=== PATIENT | female | born 1935 | race Caucasian/White ===

== ENCOUNTER 2016-08-10 05:42 | Inpatient (IN) | payer MEDICARE, BC ==
--- NOTE | ~2016-08-10 | TEE ---
Transesophageal Echocardiogram [facility] [address] [place]. [address] NAME: MIKA HORTA : 37 STATUS : ADM Rhina PAT#: [id number] AGE: 80 ADM/REG DATE : 08/10/16 MR#: [id number] REPORT SERV DATE: 08/11/16 DICTATED BY: YEVGENIY BOOKER DATE: 08/11/16 REPORT STATUS : Draft TRANSCRIBED BY: MODL DATE: 08/11/16 INDICATION: Questionable left atrial thrombus versus hematoma. PROCEDURE DESCRIPTION: After informed consent, the patient was sedated with propofol by the Anesthesia Department. The transesophageal probe was placed on the first attempt. After removal of the transesophageal probe, there were no immediate complications. FINDINGS: 2D: 1. The aortic valve is trileaflet and opens adequately. 2. There is no evidence of left atrial appendage thrombus. 3. The ascending aorta is normal in size. 4. Left ventricular size and systolic function appear normal. 5. The mitral valve is structurally normal. 6. Left atrial size is normal. 7. The right-sided chambers are normal in size. 8. The tricuspid valve is structurally normal. 9. There is a trace circumferential pericardial effusion with no signs of tamponade. 10.There is a hematoma involving the posterior portion of the interatrial septum and the posterior wall of the left atrium measuring approximately 2.5 cm in diameter. There are no mobile components. This does not appear to be an actual intravascular thrombus. DOPPLER: Pulse wave Doppler in the left atrial appendage is less than 40 cm/second. COLOR FLOW: 1. There is mild aortic, mitral, and tricuspid regurgitation. 2. There is an iatrogenic ASD noted, relatively small. IMPRESSION: There is an apparent left atrial wall hematoma involving the posterior portion of the interatrial septum and posterior left atrial wall. WW/JADEN Yevgeniy Booker M.D. / [id number] CC: Nadine Farley M.D.
--- NOTE | ~2016-08-10 | DS ---
Discharge Summary [facility] [address] [place]. [address] NAME: MIKA HORTA : 37 STATUS : DIS IN PAT#: [id number] AGE: 80 ADM/REG DATE : 08/12/16 MR#: [id number] REPORT SERV DATE: 08/25/16 DICTATED BY: ALICE RAY DATE: 08/25/16 REPORT STATUS : Draft TRANSCRIBED BY: MODJasbir DATE: 08/25/16 Data Collection from hospitalization DISCHARGE DIAGNOSES: 1. Supraventricular tachycardia. 2. Hypertension. 3. Lymphoma. 4. Gastroesophageal reflux disease. 5. Bronchitis. 6. Chemotherapy-induced peripheral neuropathy. CONSULTATIONS: None. PROCEDURES PERFORMED: Ablation/pacemaker placement on 08/10/2016. MEDICATIONS: Aspirin 162.5 mg daily, Neurontin 200 mg twice a day, multivitamins one tablet daily, fish oil 1000 mg daily, Xarelto 20 mg with supper, and Ultram 50 mg every six hours as needed. CONDITION AT DISCHARGE: Stable. DISPOSITION: The patient was discharged home on a low-sodium, low-cholesterol, cardiac diet with activities as instructed. She would follow up with me on 09/08/2016 and with her primary care provider as needed. HOSPITAL COURSE: This is a 80-year-old female who has a history of supraventricular tachycardia. She said that on the Cardizem she continued to have breakthrough episodes of tachycardia and palpitations. It was felt that she would need to undergo an ablation procedure and pacemaker placement. She was admitted to the hospital for further evaluation and treatment. Upon admission, the patient was taken to the operating room where she underwent the above- mentioned procedure. She tolerated this well, and there were no complications. The following day, postop pacemaker check was within normal limits. Dopamine was being weaned. Transesophageal echocardiogram had been performed, it was reviewed. IV fluids were continued. On 08/12/2016, the patient became a full admit. She had some weakness and dizziness. She had no chest pain or shortness of breath. She had normal device function. She was in an atrial paced rhythm. Eliquis was started. The next day, she was feeling better. She was still fatigued. She was in a normal sinus rhythm/atrial paced rhythm. She does have a chest wall hematoma. Xarelto was continued. She was wanting to go home. She was in a normal sinus rhythm. On 08/14/2016, she did have some lower extremity swelling. She continued to do well. She was evaluated by Physical Therapy. Discharge planning was performed. Bumex was continued. On 08/16/2016, she remained comfortable. She had no edema. Discharge instructions were given. Due to her improved and stable condition, she was discharged home with the above- stated instructions. [facility] [place] [id number] [facility] [place] [address] NAME: MIKA HORTA : 37 STATUS : DIS IN PAT#: [id number] AGE: 80 ADM/REG DATE : 08/12/16 MR#: [id number] REPORT SERV DATE: 08/25/16 DICTATED BY: ALICE RAY DATE: 08/25/16 REPORT STATUS : Draft TRANSCRIBED BY: JADEN DATE: 08/25/16 Information collected by: Aundrea Chahal I submit the above information as my discharge summary. TG/JADEN Alice Ray M.D. / [id number] CC: Nadine Farley M.D.
[~2016-08-10 05:42] MED LIST: ASA5GR PO; CARDCD120 PO; FISH-EPA1000 MG PO; MULTIPLE VIT PO; NEUR100 PO; ULTRAM50 PO
[2016-08-10 06:29] LABS: BASOPHILS 0.7 %; BASOPHILS ABSOLUTE 0.05 10/3/uL (0.0-0.16); EOSINOPHILS 4.4 %; EOSINOPHILS ABSOLUTE 0.33 10/3/uL (0.0-0.53); HEMOGLOBIN 11.9 g/dL (12.0-16.0); IMMATURE GRANULOCYTES 0.7 %; IMMATURE GRANULOCYTES ABSOLUTE 0.05 10/3/uL (0.0-0.11); LYMPHOCYTES 13.8 %; LYMPHOCYTES ABSOLUTE 1.04 10/3/uL (0.67-4.30); MEAN CORPUS HGB CONC 35.2 g/dL (32.0-36.0); MEAN CORPUSCULAR HEMOGLOB 33.9 pg (26.0-34.0); MONOCYTES 9.2 %; MONOCYTES ABSOLUTE 0.69 10/3/uL (0.21-1.20); NEUTROPHILS 71.2 %; NEUTROPHILS ABSOLUTE 5.35 10/3/uL (2.02-8.40); PLATELET COUNT 252 10/3/uL (150-400); WHITE BLOOD CELLS 7.5 10/3/uL (4.5-10.5)
[2016-08-10 06:38] LABS: HEMATOCRIT 33.8 % (36.0-48.0); MANUAL DIFF NO %; MEAN CORPUSCULAR VOLUME 96.3 fL (80-100); RED CELL COUNT 3.51 10/6/uL (4.0-5.6)
[2016-08-10 06:40] LABS: BUN (BLOOD UREA NITROGEN) 11 MG/DL (6-23); CALCIUM, SERUM 9.4 MG/DL (8.5-10.4); CHLORIDE, SERUM 108 MMOL/L (96-112); CO2 (CARBON DIOXIDE) 30 MMOL/L (24-34); CREATININE 0.73 MG/DL (0.55-1.02); GFR AFRICAN AMERICAN 91 ML/MIN (>=60); GFR NON AFRICAN AMERICAN 78 ML/MIN (>=60); GLUCOSE, SERUM 105 MG/DL (60-99); POTASSIUM, SERUM 3.8 MMOL/L (3.5-5.3); SODIUM, SERUM 145 MMOL/L (135-148)
[2016-08-11 08:13] LABS: BASOPHILS 0.1 %; BASOPHILS ABSOLUTE 0.02 10/3/uL (0.0-0.16); EOSINOPHILS 0 %; HEMOGLOBIN 11.1 g/dL (12.0-16.0); IMMATURE GRANULOCYTES 0.4 %; IMMATURE GRANULOCYTES ABSOLUTE 0.07 10/3/uL (0.0-0.11); LYMPHOCYTES ABSOLUTE 0.53 10/3/uL (0.67-4.30); MEAN CORPUS HGB CONC 34.7 g/dL (32.0-36.0); MEAN CORPUSCULAR HEMOGLOB 33.9 pg (26.0-34.0); MEAN CORPUSCULAR VOLUME 97.9 fL (80-100); MEAN PLATELET VOLUME 11.3 fL (9.2-13.0); MONOCYTES 8.5 %; NEUTROPHILS ABSOLUTE 15.55 10/3/uL (2.02-8.40); PLATELET COUNT 249 10/3/uL (150-400); RBC DISTRIBUTION WIDTH 16.3 % (12.0-16.0); RED CELL COUNT 3.27 10/6/uL (4.0-5.6); WHITE BLOOD CELLS 17.7 10/3/uL (4.5-10.5)
[2016-08-11 08:14] LABS: MANUAL DIFF NO %
[2016-08-11 08:57] LABS: CHLORIDE, SERUM 111 MMOL/L (96-112); CREATININE 0.87 MG/DL (0.55-1.02); GFR AFRICAN AMERICAN 73 ML/MIN (>=60); GFR NON AFRICAN AMERICAN 63 ML/MIN (>=60); POTASSIUM, SERUM 4.1 MMOL/L (3.5-5.3); SODIUM, SERUM 144 MMOL/L (135-148)
[2016-08-11 08:58] LABS: BUN (BLOOD UREA NITROGEN) 15 MG/DL (6-23); CALCIUM, SERUM 8.1 MG/DL (8.5-10.4); CO2 (CARBON DIOXIDE) 23 MMOL/L (24-34); GLUCOSE, SERUM 151 MG/DL (60-99)
[2016-08-11 12:13] LABS: ASCORBIC ACID (UR NOT ORDER) NEG (NEG); BILIRUBIN, URINE NEGATIVE (NEG); KETONE, URINE NEGATIVE (NEG); LEUKOCYTE ESTERASE(NOT OR NEG (NEG); WBC (NOT ORDERED) (RFLEX) 1 (0-5)
[2016-08-12 05:35] LABS: BUN (BLOOD UREA NITROGEN) 27 MG/DL (6-23); CALCIUM, SERUM 8.2 MG/DL (8.5-10.4); CHLORIDE, SERUM 110 MMOL/L (96-112); CO2 (CARBON DIOXIDE) 26 MMOL/L (24-34); CREATININE 0.87 MG/DL (0.55-1.02); GFR AFRICAN AMERICAN 73 ML/MIN (>=60); GFR NON AFRICAN AMERICAN 63 ML/MIN (>=60); GLUCOSE, SERUM 116 MG/DL (60-99); SODIUM, SERUM 142 MMOL/L (135-148)
[2016-08-12 05:50] LABS: BASOPHILS 0.2 %; BASOPHILS ABSOLUTE 0.02 10/3/uL (0.0-0.16); EOSINOPHILS 0.2 %; EOSINOPHILS ABSOLUTE 0.03 10/3/uL (0.0-0.53); HEMATOCRIT 30.5 % (36.0-48.0); HEMOGLOBIN 10.3 g/dL (12.0-16.0); IMMATURE GRANULOCYTES 0.4 %; IMMATURE GRANULOCYTES ABSOLUTE 0.05 10/3/uL (0.0-0.11); LYMPHOCYTES 8.9 %; LYMPHOCYTES ABSOLUTE 1.13 10/3/uL (0.67-4.30); MEAN CORPUS HGB CONC 33.8 g/dL (32.0-36.0); MEAN CORPUSCULAR HEMOGLOB 34.1 pg (26.0-34.0); MEAN PLATELET VOLUME 11.2 fL (9.2-13.0); MONOCYTES 8.9 %; MONOCYTES ABSOLUTE 1.12 10/3/uL (0.21-1.20); NEUTROPHILS 81.4 %; NEUTROPHILS ABSOLUTE 10.29 10/3/uL (2.02-8.40); PLATELET COUNT 176 10/3/uL (150-400); RBC DISTRIBUTION WIDTH 16.8 % (12.0-16.0); RED CELL COUNT 3.02 10/6/uL (4.0-5.6); WHITE BLOOD CELLS 12.6 10/3/uL (4.5-10.5)
[2016-08-12 05:51] LABS: MANUAL DIFF NO %
[2016-08-14 05:54] LABS: CALCIUM, SERUM 8.6 MG/DL (8.5-10.4); CHLORIDE, SERUM 105 MMOL/L (96-112); CREATININE 0.74 MG/DL (0.55-1.02); GFR AFRICAN AMERICAN 89 ML/MIN (>=60); GFR NON AFRICAN AMERICAN 77 ML/MIN (>=60); GLUCOSE, SERUM 104 MG/DL (60-99); HEMATOCRIT 29.3 % (36.0-48.0); HEMOGLOBIN 9.9 g/dL (12.0-16.0); MEAN CORPUS HGB CONC 33.8 g/dL (32.0-36.0); MEAN CORPUSCULAR HEMOGLOB 33.8 pg (26.0-34.0); MEAN PLATELET VOLUME 12.1 fL (9.2-13.0); NUCLEATED RED BLOOD CELLS 0.6 /100WBC (0-0); PLATELET COUNT 187 10/3/uL (150-400); POTASSIUM, SERUM 3.7 MMOL/L (3.5-5.3); RBC DISTRIBUTION WIDTH 16.3 % (12.0-16.0); RED CELL COUNT 2.93 10/6/uL (4.0-5.6); SODIUM, SERUM 141 MMOL/L (135-148); WHITE BLOOD CELLS 9.1 10/3/uL (4.5-10.5)
[2016-08-14 05:55] LABS: BUN (BLOOD UREA NITROGEN) 17 MG/DL (6-23); CO2 (CARBON DIOXIDE) 31 MMOL/L (24-34)
[2016-08-14 06:00] LABS: MANUAL DIFF YES %
[2016-08-14 06:05] LABS: BAND NEUTROPHILS 13 %; EOSINOPHILS 4 %; EOSINOPHILS ABSOLUTE (CALC) 0.36 10/3/uL (0.0-0.53); LYMPHOCYTES 13 %; LYMPHOCYTES ABSOLUTE (CALC) 1.18 10/3/uL (0.67-4.30); MONOCYTES 6 %; MONOCYTES ABSOLUTE (CALC) 0.55 10/3/uL (0.21-1.20); NEUTROPHILS ABSOLUTE (CALC) 7.01 10/3/uL (2.02-8.40); PLATELET ESTIMATE ADQ (ADEQUATE); SEGMENTED NEUTROPHIL (0) 64 %; TOTAL NUCLEATED CELLS 100
[2016-08-14 06:06] LABS: MACROCYTES 1+ (5-10/OIF) (0-5/OIF); RBC MORPHOLOGY ABN (NORMAL)
[2016-08-15 06:48] LABS: BUN (BLOOD UREA NITROGEN) 14 MG/DL (6-23); CALCIUM, SERUM 8.8 MG/DL (8.5-10.4); CHLORIDE, SERUM 104 MMOL/L (96-112); CO2 (CARBON DIOXIDE) 32 MMOL/L (24-34); CREATININE 0.67 MG/DL (0.55-1.02); GFR AFRICAN AMERICAN 97 ML/MIN (>=60); GFR NON AFRICAN AMERICAN 84 ML/MIN (>=60); GLUCOSE, SERUM 99 MG/DL (60-99); POTASSIUM, SERUM 3.6 MMOL/L (3.5-5.3); SODIUM, SERUM 141 MMOL/L (135-148)
[2016-08-15 07:33] LABS: BASOPHILS 0.6 %; BASOPHILS ABSOLUTE 0.05 10/3/uL (0.0-0.16); EOSINOPHILS 4.6 %; EOSINOPHILS ABSOLUTE 0.41 10/3/uL (0.0-0.53); HEMATOCRIT 30.1 % (36.0-48.0); HEMOGLOBIN 10.2 g/dL (12.0-16.0); IMMATURE GRANULOCYTES 1.4 %; IMMATURE GRANULOCYTES ABSOLUTE 0.12 10/3/uL (0.0-0.11); LYMPHOCYTES 14.2 %; LYMPHOCYTES ABSOLUTE 1.25 10/3/uL (0.67-4.30); MEAN CORPUS HGB CONC 33.9 g/dL (32.0-36.0); MEAN CORPUSCULAR VOLUME 100.3 fL (80-100); MEAN PLATELET VOLUME 11.5 fL (9.2-13.0); MONOCYTES 9.2 %; MONOCYTES ABSOLUTE 0.81 10/3/uL (0.21-1.20); NEUTROPHILS ABSOLUTE 6.19 10/3/uL (2.02-8.40); NUCLEATED RED BLOOD CELLS 0.6 /100WBC (0-0); PLATELET COUNT 224 10/3/uL (150-400); RBC DISTRIBUTION WIDTH 16.3 % (12.0-16.0); WHITE BLOOD CELLS 8.8 10/3/uL (4.5-10.5)
[2016-08-15 07:36] LABS: MANUAL DIFF NO %
[2016-08-16 06:46] LABS: BUN (BLOOD UREA NITROGEN) 15 MG/DL (6-23); CALCIUM, SERUM 9.3 MG/DL (8.5-10.4); CHLORIDE, SERUM 103 MMOL/L (96-112); CO2 (CARBON DIOXIDE) 30 MMOL/L (24-34); CREATININE 0.67 MG/DL (0.55-1.02); GFR AFRICAN AMERICAN 97 ML/MIN (>=60); GFR NON AFRICAN AMERICAN 84 ML/MIN (>=60); GLUCOSE, SERUM 97 MG/DL (60-99); POTASSIUM, SERUM 3.5 MMOL/L (3.5-5.3); SODIUM, SERUM 141 MMOL/L (135-148)
[2016-08-16 06:50] LABS: HEMOGLOBIN 10.6 g/dL (12.0-16.0)
[2016-08-16] MEDS ORDERED: XARELTO20 MG PO (13:48)
== END 2016-08-16 14:37 | disposition home or self-care (01) | DRG 243 ==
LOC: CORLMH 05:42 → SSU1 05:46 → 7NO 08-12 13:17
PROVIDERS: Internal Medicine Cardiovascular Disease; Internal Medicine Clinical Cardiac Electrophysiology
PROC: 02H63JZ Insertion of Pacemaker Lead into Right Atrium, Percutaneous Approach (ICD-10-PCS; 2016-08-10)
PROC: 02HK3JZ Insertion of Pacemaker Lead into Right Ventricle, Percutaneous Approach (ICD-10-PCS; 2016-08-10)
PROC: 02583ZZ Destruction of Conduction Mechanism, Percutaneous Approach (ICD-10-PCS; 2016-08-10)
PROC: 02K83ZZ Map Conduction Mechanism, Percutaneous Approach (ICD-10-PCS; 2016-08-10)
PROC: 0JH606Z Insertion of Pacemaker, Dual Chamber into Chest Subcutaneous Tissue and Fascia, Open Approach (ICD-10-PCS; principal; 2016-08-10 18:43)
PROC: B246ZZ4 Ultrasonography of Right and Left Heart, Transesophageal (ICD-10-PCS; 2016-08-11)
DX: I47.1 Supraventricular tachycardia (principal); C85.90 Non-Hodgkin lymphoma, unspecified, unspecified site; I48.92 Unspecified atrial flutter; Q21.1 Atrial septal defect; D62 Acute posthemorrhagic anemia; I97.621 Postprocedural hematoma of a circulatory system organ or structure following other procedure; G62.0 Drug-induced polyneuropathy; I49.3 Ventricular premature depolarization; T45.1X5A Adverse effect of antineoplastic and immunosuppressive drugs, initial encounter; Y83.8 Other surgical procedures as the cause of abnormal reaction of the patient, or of later complication, without mention of misadventure at the time of the procedure; Y92.239 Unspecified place in hospital as the place of occurrence of the external cause
CPT/HCPCS: 33208; 71010; 80048; 81001; 82962; 83735; 83880; 85014; 85018; 85025; 85347; 93005; 93308; 93312; 93320; 93325; 93613; 93621; 93623; 93653; 93655; 93662; 97161-GP; A9270-GY; C1730; C1732; C1733; C1759; C1781; C1785; C1892; C1894; C1898; G8978-CI-GP; G8979-CI-GP; G8980-CI-GP; J0690; J2405; J2720; J3010; Q9967